=== PATIENT | male | born 1935 | race Caucasian/White ===

== ENCOUNTER 2017-11-14 01:17 | Inpatient (IN) | payer BC, MEDICARE ==
[~2017-11-14] VITALS: Ht 172.7 cm; Wt 121.2 kg
--- NOTE | 2017-11-14 02:32 | NUR ---
PT BIB FAMILY FROM HOME, PT C/O FLU LIKE SYMPTOMS X 4 DAYS. PT AOX3 RR EVEN AND UNLABORED. NO SOB NOTED. NAD NOTED. NO NVD AT THIS TIME. PT GOWNED AND PLACED ON MONITOR WAITING FOR MD BHANDARI. FAMILY AT BEDSIDE
--- NOTE | 2017-11-14 02:37 | NUR ---
DR. NOLASCO AT BEDSIDE FOR EVAL.
--- NOTE | 2017-11-14 02:47 | NUR ---
RADIOLOGY AT BEDSIDE FOR CXR
[2017-11-14] MEDS ORDERED: FUROSEMIDE 40 MG/4 ML VIAL ONE (02:59)
[2017-11-14] MEDS ORDERED: ASPIRIN 325 MG TABLET ONE (03:00)
[2017-11-14] MEDS ORDERED: ASPIRIN 325 MG TABLET PO ONE (03:00)
[2017-11-14] MEDS ORDERED: FUROSEMIDE 40 MG/4 ML VIAL IV ONE (03:00)
[2017-11-14] MEDS ORDERED: FUROSEMIDE 20 MG/2 ML VIAL ONE (03:00)
[2017-11-14 03:04] LABS: HEMATOCRIT 43 % (39-51); HEMOGLOBIN 14.3 g/dL (13.5-17.5); LYMPHOCYTES # (AUTO) 0.8 /CMM (0.8-4.8); LYMPHOCYTES % (AUTO) 3.8 % (20.0-44.0); MEAN CORPUSCULAR HEMOGLOBIN 32 PG (26.0-33.0); MEAN CORPUSCULAR HGB CONC 34 g/dl (31.0-36.0); MEAN CORPUSCULAR VOLUME 95 fL (80-96); MONOCYTES # (AUTO) 1.3 /CMM (0.1-1.30); MONOCYTES % (AUTO) 6.2 % (2.0-12.0); NEUTROPHILS # (AUTO) 19.1 /CMM (1.8-8.9); PLATELET COUNT (AUTO) 210 /CMM (150-450); RDW COEFFICIENT OF VARIATION 13.4 (11.5-15.0); RED BLOOD CELL COUNT(AUTO) 4.47 MIL/uL (4.5-6.0); WHITE BLOOD COUNT (AUTO) 21.2 K/uL (4.3-11.0)
[2017-11-14 03:18] LABS: INR 1.1 (0.87-1.13)
[2017-11-14 03:22] LABS: TROPONIN I < 0.017 ng/mL (0.00-0.056)
[2017-11-14 03:28] LABS: CALCIUM, SERUM 9.2 mg/dL (8.5-10.1); CARBON DIOXIDE 30 mmol/L (21-32); CHLORIDE 101 mmol/L (98-107); CREATININE 1.7 mg/dL (0.6-1.3); GLUCOSE 214 mg/dL (74-106); POTASSIUM 4.2 mmol/L (3.5-5.1); SODIUM SERUM 139 mmol/L (136-145); UREA NITROGEN, BLOOD 24 mg/dL (7-18)
[2017-11-14 03:39] LABS: BAND % (MANUAL) 4 % (0.0-5.0); LYMPHOCYTES % (MANUAL) 2 % (16-48); MONOCYTES % (MANUAL) 7 % (0-11.0); NEUTROPHILS % (MANUAL) 87 (42-76)
[2017-11-14 03:40] LABS: ALANINE AMINOTRANSFERASE 19 U/L (12-78); ALBUMIN 2.8 g/dL (3.4-5.0); ALKALINE PHOSPHATASE 105 U/L (46-116); ASPARTATE AMINOTRANSFERASE 15 U/L (15-37); B-TYPE NATRIURETIC PEPTIDE 1130 PG/ML (0-125); BILIRUBIN,DIRECT 0.2 mg/dL (0.0-0.2); BILIRUBIN,TOTAL 0.7 mg/dL (0.2-1.0); TOTAL PROTEIN, SERUM 8.2 g/dL (6.4-8.2)
[2017-11-14] MEDS ORDERED: CEFTRIAXONE 1GM BAG (ER ONLY) 1 GM/50 ML PIGGYBACK IV ONE (04:00)
[2017-11-14] MEDS ORDERED: AZITHROMYCIN 500 MG in IV D5W 250 ML IV ONE (04:00)
--- NOTE | 2017-11-14 04:05 | NUR ---
BLOOD CX COLLECTED. AND INFLUENZA SWAB COLLCTED. CALLED LAB FOR PCK UP.
[2017-11-14] MEDS ORDERED: CEFTRIAXONE 1GM BAG (ER ONLY) 50 ML IV ONE (04:17)
[2017-11-14] MEDS ORDERED: AZITHROMYCIN 500 MG VIAL ONE (04:28)
--- NOTE | 2017-11-14 04:30 | NUR ---
DR. NOLASCO AT [facility] SPEAKING TO PT FAMILY REGARDING RESULTS
--- NOTE | 2017-11-14 04:31 | NUR ---
EPIC PANEL PAGED FOR ADMISSION
[2017-11-14] MEDS ORDERED: POTA10CA43 PO (04:46)
[2017-11-14] MEDS ORDERED: BRIM5DRO2 RIGHTEYE (04:46)
[2017-11-14] MEDS ORDERED: METF500T7 PO (04:46)
[2017-11-14] MEDS ORDERED: ATOR10TA PO (04:46)
[2017-11-14] MEDS ORDERED: LOSA100T15 PO (04:46)
[2017-11-14] MEDS ORDERED: CLOP75TA15 PO (04:46)
--- NOTE | 2017-11-14 04:53 | NUR ---
PT ASSIGNED TO 312-2
--- NOTE | 2017-11-14 04:57 | NUR ---
REPORT GIVEN TO TONIA WESTFALL FOR [facility] / TELE BED 312-2
[2017-11-14] MEDS ORDERED: LEVALBUTEROL HCL NEB 1.25 MG/0.5 ML VIAL.NEB NEB SCH (05:00)
[2017-11-14] MEDS ORDERED: Z GUARD REMEDY 2 OZ OINT TP PRN (05:00)
[2017-11-14] MEDS: CEFTRIAXONE 1 G in IV D5W 50 ML IV SCH (05:00)
[2017-11-14] MEDS: AZITHROMYCIN 250 MG TABLET PO SCH (05:00)
[2017-11-14] MEDS ORDERED: hydrALAZINE HCL 25 MG TABLET PO PRN (05:00)
[2017-11-14] MEDS ORDERED: HYDROCODONE/APAP 5/325MG 1 EACH TABLET PO PRN (05:00)
[2017-11-14] MEDS ORDERED: DEXTROSE 50%-WATER 50 ML DISP.SYRIN IV PRN (05:00)
[2017-11-14] MEDS ORDERED: ONDANSETRON HCL/PF 4 MG/2 ML VIAL IVP PRN (05:00)
[2017-11-14] MEDS ORDERED: MAG HYDROX/AL HYDROX/SIMETH 30 ML UDC PO PRN (05:00)
[2017-11-14] MEDS ORDERED: ACETAMINOPHEN 325 MG TABLET PO PRN (05:00)
[2017-11-14] MEDS ORDERED: IV NS 0.9% 500 ML IV ONE (05:00)
[2017-11-14] MEDS ORDERED: ALPRAZOLAM 0.25 MG TABLET PO PRN (05:00)
[2017-11-14] MEDS ORDERED: ZOLPIDEM TARTRATE 5 MG TABLET PO PRN (05:00)
[2017-11-14] MEDS ORDERED: MAGNESIUM HYDROXIDE 30 ML UDC PO PRN (05:00)
[2017-11-14 05:15] VITALS: BP 127/65
--- NOTE | 2017-11-14 05:15 | NUR ---
TELERN RECEIVED FROM ER [facility] BY AND SON AN 82 Y/O MALE CC OF FLU LIKE SYMPTOMS FOR 4 DAYS. EXERTIONAL SOB, ADMISSION INFO OBTAINED FROM AND SON, PARTIALLY FROM PATIENT. STATED FEELS TOO TIRED AND WANTED TO SLEEP. PLUS 3 EDEMA ON LOWER IBRAHIMA EXTREMITIES SEEN. 02 AT 3 L NC. V/S STABLE. NPO TILL SEEN BY EXTRACTOR OPERATOR SOLVENT PROCESS. ORIENTED TO ROOM FACILITIES, APPEARS TO UNDERSTAND. CALL LIGHT WITHIN REACH .
--- NOTE | 2017-11-14 05:16 | NUR ---
PT TRANSFERRED PER [facility]OL TO THE [facility] BED 312-2
[2017-11-14 05:30] VITALS: BP 127/65
[2017-11-14] MEDS ORDERED: ENOXAPARIN SODIUM 30 MG/0.3 ML DISP.SYRIN ONE (06:00)
[2017-11-14] MEDS: ENOXAPARIN SODIUM 30 MG/0.3 ML DISP.SYRIN SQ SCH (06:41)
--- NOTE | 2017-11-14 06:50 | NUR ---
TELERN ST ON THE MONITOR WITH OCC PVC. RESTING QUIETLY. LOVENOX ADMINISTERED. BS 258. WILL ENDORSE TO INCOMING RN
[2017-11-14] MEDS: BLOOD SUGAR DIAGNOSTIC 1 EACH STRIP IN SCH ×4 (07:30→21:27)
--- NOTE | 2017-11-14 07:35 | NUR ---
MARBLE INSTALLATION HELPER/OPENING NOTES RECEIVED PT. IN BED A&OX3. TELE MONITOR READING SINUS TACHYCARDIA WITH PVC'S AT 108 BPM. BREATHING ON OXYGEN AT 2L/MIN VIA NASAL CANNULA. BREATHING SHALLOW. NO S/S OF ACUTE DISTRESS. IV ON LEFT FOREARM IS INTACT AND PATENT. URINAL IS AT BEDSIDE. BED IS IN LOWEST, AND LOCKED POSITION, 2 SIDE RAILS UP, AND INSTRUCTED PT. TO USE CALL LIGHT FOR ASSISTANCE. ALL NEEDS MET. WILL CONTINUE TO ASSESS AND MONITOR.
[2017-11-14 08:00] VITALS: BP 123/57
[2017-11-14 09:24] LABS: MAGNESIUM 1.8 mg/dL (1.8-2.4); PHOSPHORUS 2.6 mg/dL (2.5-4.9)
[2017-11-14] MEDS: POTASSIUM CHLORIDE 20 MEQ TAB.PRT.SR PO SCH ×2 (09:52→11:06)
[2017-11-14] MEDS: FUROSEMIDE 40 MG/4 ML VIAL IV SCH ×3 (09:55→17:01)
[2017-11-14] MEDS: METOPROLOL TARTRATE 25 MG TABLET PO SCH ×2 (09:56→21:26)
[2017-11-14] MEDS: INSULIN REGULAR, HUMAN 100 UNIT/ML 3 ML VIAL SQ PRN ×3 (11:55→21:28)
[2017-11-14 12:22] LABS: THYROID STIMULATING HORMONE 0.828 uIU/mL (0.358-3.74)
[2017-11-14] MEDS: ASPIRIN 81 MG TAB.CHEW PO SCH (13:08)
[2017-11-14 16:14] VITALS: BP 112/56
--- NOTE | 2017-11-14 19:10 | NUR ---
TELE/RN NOTES RECEIVED PT. LYING IN BED RESTING. PT. IS EASILY AROUSABLE TO NAME. AWAKE, ALERT AND ORIENTED X 3. BREATHING EVEN AND UNLABORED ON 2LPM O2 VIA NC. NO SOB, RESPIRATORY DISTRESS OR COMPLAINTS OF PAIN NOTED AT THIS TIME. PT. WITH EXTERNAL PERITONEAL DIALYSIS REGISTERED NURSE PRESENT AND INTACT. CURRENT RHYTHM = SINUS RHYTHM HR 90. BED LOCKED AND IN LOWEST POSITION, SIDE RAILS UP X2, BED ALARM ON, CALL LIGHT WITHIN REACH, WILL CONTINUE TO MONITOR.
--- NOTE | 2017-11-14 19:21 | NUR ---
CHEMICAL INSTRUMENTATION OFFICER/CLOSING NOTES PT. IN BED A&OX3. ON TELE MONITOR READING SINUS RHYTHM 85 BPM WITH PVC'S. BREATHING ON OXYGEN AT 2L/MIN VIA NASAL CANNULA. BREATHING SHALLOW. NO S/S OF ACUTE DISTRESS. IV ON LEFT FOREARM IS INTACT AND PATENT. URINAL IS AT BEDSIDE. BED IS IN LOWEST, AND LOCKED POSITION, 2 SIDE RAILS UP, AND INSTRUCTED PT. TO USE CALL LIGHT FOR ASSISTANCE. ALL NEEDS MET. WILL ENDORSE REPORT TO NURSE.
[2017-11-14 20:00] VITALS: BP 115/49
[2017-11-14] MEDS: ALBUTEROL FS 2.5 MG/3 ML VIAL.NEB NEB SCH (21:10)
[2017-11-14] MEDS: ATORVASTATIN 10 MG TABLET PO SCH (21:26)
--- NOTE | 2017-11-14 22:40 | NUR ---
TELE/RN NOTES NOTIFIED EPIC WOOL SORTER MD GONZALEZ PT. CRITICAL LAB RESULT: AEROBIC BLOOD CULTURE IS POSITIVE FOR GRAM NEGATIVE RODS. PT. IS RECEIVING ROCEPHIN AND ZITHROMAX ANTIBIOTICS. PER MD GONZALEZ OK, NO NEW ORDERS AT THIS TIME. WILL CONTINUE TO MONITOR.
[2017-11-15] VITALS: BP 113/55
[2017-11-15] MEDS: ALBUTEROL FS 2.5 MG/3 ML VIAL.NEB NEB SCH ×5 (00:58→20:01)
[2017-11-15 04:00] VITALS: BP 104/47
[2017-11-15] MEDS: CEFTRIAXONE 1 G in IV D5W 50 ML IV SCH (05:33)
[2017-11-15] MEDS: ENOXAPARIN SODIUM 30 MG/0.3 ML DISP.SYRIN SQ SCH (05:33)
[2017-11-15] MEDS: AZITHROMYCIN 250 MG TABLET PO SCH (05:33)
--- NOTE | 2017-11-15 06:13 | NUR ---
TELE/RN NOTES PT. IS LYING IN BED RESTING. BREATHING EVEN AND UNLABORED ON 3LPM O2 VIA NC. NO SOB, RESPIRATORY DISTRESS OR COMPLAINTS OF PAIN NOTED AT THIS TIME AND THROUGHOUT SHIFT. PT. WITH EXTERNAL SUPPORT SERVICES SPECIALIST PRESENT AND INTACT. CURRENT RHYTHM = SINUS RHYTHM HR 91. ALL PT. NEEDS MET. BED LOCKED AND IN LOWEST POSITION, SIDE RAILS UP X2, BED ALARM ON, CALL LIGHT WITHIN REACH, WILL ENDORSE TO DAYSHIFT NURSE FOR CONTINUITY OF CARE.
[2017-11-15] MEDS: BLOOD SUGAR DIAGNOSTIC 1 EACH STRIP IN SCH ×4 (06:54→22:01)
[2017-11-15] MEDS: INSULIN REGULAR, HUMAN 100 UNIT/ML 3 ML VIAL SQ PRN ×4 (06:55→22:02)
[2017-11-15 07:12] LABS: HEMATOCRIT 39 % (39-51); HEMOGLOBIN 12.9 g/dL (13.5-17.5); LYMPHOCYTES # (AUTO) 0.6 /CMM (0.8-4.8); MEAN CORPUSCULAR HEMOGLOBIN 32 PG (26.0-33.0); MEAN CORPUSCULAR HGB CONC 33 g/dl (31.0-36.0); MEAN CORPUSCULAR VOLUME 97 fL (80-96); MONOCYTES % (AUTO) 6.3 % (2.0-12.0); NEUTROPHILS # (AUTO) 14.1 /CMM (1.8-8.9); NEUTROPHILS % (AUTO) 89.7 % (43.0-81.0); PLATELET COUNT (AUTO) 214 /CMM (150-450); RDW COEFFICIENT OF VARIATION 13.9 (11.5-15.0); RED BLOOD CELL COUNT(AUTO) 4.02 MIL/uL (4.5-6.0); WHITE BLOOD COUNT (AUTO) 15.7 K/uL (4.3-11.0)
[2017-11-15 07:25] LABS: CHOLESTEROL 110 mg/dL (<200); HDL CHOLESTEROL 37 mg/dL (40-60); LDL 53 mg/dL (0-99); TRIGLYCERIDES 91 mg/dL (30-150)
[2017-11-15 07:27] LABS: TROPONIN I < 0.017 ng/mL (0.00-0.056)
[2017-11-15 07:33] LABS: ALANINE AMINOTRANSFERASE 17 U/L (12-78); ALBUMIN 2.3 g/dL (3.4-5.0); ALKALINE PHOSPHATASE 110 U/L (46-116); ASPARTATE AMINOTRANSFERASE 18 U/L (15-37); BILIRUBIN,TOTAL 0.2 mg/dL (0.2-1.0); CALCIUM, SERUM 8.5 mg/dL (8.5-10.1); CARBON DIOXIDE 34 mmol/L (21-32); CHLORIDE 103 mmol/L (98-107); CREATININE 2.1 mg/dL (0.6-1.3); GLUCOSE 206 mg/dL (74-106); MAGNESIUM 1.8 mg/dL (1.8-2.4); PHOSPHORUS 4.5 mg/dL (2.5-4.9); POTASSIUM 4.8 mmol/L (3.5-5.1); SODIUM SERUM 142 mmol/L (136-145); TOTAL PROTEIN, SERUM 7.2 g/dL (6.4-8.2); UREA NITROGEN, BLOOD 35 mg/dL (7-18)
--- NOTE | 2017-11-15 07:55 | NUR ---
STOCK HOUSE WORKER OPENING NOTE RECEIVED BEDSIDE SBAR REPORT ON THE PATIENT. PATIENT IS A/0 X3, COOPERATIVE. PATIENT IS AWAKE AND RESPONSIVE IN BED. DENIES PAIN/DISCOMFORT AT THIS TIME. EXTERNAL MONITOR READING SR 80. CHEST RISING EQUALLY BILATERALLY. PATIENT IS IN BED. BED IS LOCKED, IN LOWEST POSITION, SIDE RAILS UP X3, BED ALARM IS ON. PATIENT IS AMBULATORY WITH ASSIST. USES URINAL. URINAL AT THE BEDSIDE. CALL LIGHT WITHIN REACH. ALL BELONGINGS IN CLOSE APPROXIMATION AND ACCESSIBLE. ALL NEEDS ARE MET AT THIS TIME. EDUCATED TO CALL USING THE CALL LIGHT FOR ASSISTANCE. VERBALIZED UNDERSTANDING. WILL CONTINUE TO ASSESS/MONITOR THROUGHOUT THE SHIFT.
[2017-11-15 08:00] VITALS: BP 139/78
[2017-11-15] MEDS: ASPIRIN 81 MG TAB.CHEW PO SCH (10:01)
[2017-11-15] MEDS: METOPROLOL TARTRATE 25 MG TABLET PO SCH ×2 (10:02→21:00)
[2017-11-15] MEDS ORDERED: ALBUTEROL FS 2.5 MG/0.5 ML VIAL.NEB NEB PRN (12:00)
[2017-11-15 15:55] VITALS: BP 107/55
--- NOTE | 2017-11-15 19:10 | NUR ---
MS/RN NOTES RECEIVED PT. LYING IN BED, AWAKE, ALERT AND ORIENTED X 3. BREATHING EVEN AND UNLABORED ON 2LPM O2 VIA NC. NO SOB, RESPIRATORY DISTRESS OR COMPLAINTS OF PAIN NOTED AT THIS TIME. PT. WITH LEFT FOREARM 18 GAUGE IV SALINE LOCK PRESENT, PATENT AND INTACT. BED LOCKED AND IN LOWEST POSITION, SIDE RAILS UP X2, BED ALARM ON, CALL LIGHT WITHIN REACH, WILL CONTINUE TO MONITOR.
--- NOTE | 2017-11-15 19:25 | NUR ---
MS RN OPENING NOTE GAVE BEDSIDE SBAR REPORT ON THE PATIENT. PATIENT IS A/0 X3, COOPERATIVE. PATIENT IS AWAKE AND RESPONSIVE IN BED. DENIES PAIN/DISCOMFORT AT THIS TIME. CHEST RISING EQUALLY BILATERALLY. PATIENT IS IN BED. BED IS LOCKED, IN LOWEST POSITION, SIDE RAILS UP X3, BED ALARM IS ON. PATIENT IS AMBULATORY WITH ASSIST. USES URINAL. URINAL AT THE BEDSIDE. SKIN IS INTACT. CALL LIGHT WITHIN REACH. ALL BELONGINGS IN CLOSE APPROXIMATION AND ACCESSIBLE. ALL NEEDS ARE MET AT THIS TIME. EDUCATED TO CALL USING THE CALL LIGHT FOR ASSISTANCE. VERBALIZED UNDERSTANDING. ENDORSED TO THE EYE SPECIALIST FOR [facility].
[2017-11-15 20:18] VITALS: BP 111/49
[2017-11-15] MEDS: ATORVASTATIN 10 MG TABLET PO SCH (22:00)
[2017-11-16] MEDS: ALBUTEROL FS 2.5 MG/3 ML VIAL.NEB NEB SCH ×4 (04:05→12:07)
[2017-11-16] MEDS: CEFTRIAXONE 1 G in IV D5W 50 ML IV SCH (05:30)
[2017-11-16] MEDS: AZITHROMYCIN 250 MG TABLET PO SCH (05:30)
[2017-11-16] MEDS: ENOXAPARIN SODIUM 30 MG/0.3 ML DISP.SYRIN SQ SCH (05:33)
--- NOTE | 2017-11-16 06:09 | NUR ---
MS/RN NOTES PT. IS LYING IN BED, AWAKE, ALERT AND ORIENTED X 3. BREATHING EVEN AND UNLABORED ON 2LPM O2 VIA NC. NO SOB, RESPIRATORY DISTRESS OR COMPLAINTS OF PAIN NOTED AT THIS TIME AND THROUGHOUT SHIFT. PT. WITH LEFT FOREARM 18 GAUGE IV SALINE LOCK PRESENT, PATENT AND INTACT. ALL PT. NEEDS MET. BED LOCKED AND IN LOWEST POSITION, SIDE RAILS UP X2, BED ALARM ON, CALL LIGHT WITHIN REACH, WILL ENDORSE TO DAYSHIFT NURSE FOR CONTINUITY OF CARE.
[2017-11-16 06:33] LABS: BASOPHILS % (AUTO) 0.1 % (0.0-2.0); EOSINOPHILS # (AUTO) 0.1 /CMM (0.0-0.7); EOSINOPHILS % (AUTO) 0.6 % (0.0-6.0); HEMATOCRIT 36 % (39-51); HEMOGLOBIN 11.9 g/dL (13.5-17.5); LYMPHOCYTES # (AUTO) 0.9 /CMM (0.8-4.8); LYMPHOCYTES % (AUTO) 8.4 % (20.0-44.0); MEAN CORPUSCULAR HEMOGLOBIN 32 PG (26.0-33.0); MEAN CORPUSCULAR HGB CONC 33 g/dl (31.0-36.0); MEAN CORPUSCULAR VOLUME 96 fL (80-96); MONOCYTES # (AUTO) 1.2 /CMM (0.1-1.30); MONOCYTES % (AUTO) 11.6 % (2.0-12.0); NEUTROPHILS # (AUTO) 8.4 /CMM (1.8-8.9); NEUTROPHILS % (AUTO) 79.3 % (43.0-81.0); PLATELET COUNT (AUTO) 216 /CMM (150-450); RDW COEFFICIENT OF VARIATION 13.7 (11.5-15.0); RED BLOOD CELL COUNT(AUTO) 3.72 MIL/uL (4.5-6.0); WHITE BLOOD COUNT (AUTO) 10.6 K/uL (4.3-11.0)
[2017-11-16] MEDS: BLOOD SUGAR DIAGNOSTIC 1 EACH STRIP IN SCH (06:34)
[2017-11-16] MEDS: INSULIN REGULAR, HUMAN 100 UNIT/ML 3 ML VIAL SQ PRN (06:35)
[2017-11-16 06:38] LABS: CALCIUM, SERUM 8.8 mg/dL (8.5-10.1); CARBON DIOXIDE 34 mmol/L (21-32); CHLORIDE 104 mmol/L (98-107); CREATININE 1.6 mg/dL (0.6-1.3); GLUCOSE 201 mg/dL (74-106); POTASSIUM 4.1 mmol/L (3.5-5.1); SODIUM SERUM 142 mmol/L (136-145); UREA NITROGEN, BLOOD 37 mg/dL (7-18)
[2017-11-16 08:00] VITALS: BP 109/50
--- NOTE | 2017-11-16 08:50 | NUR ---
MS RN RECEIVED ON BED, AWAKE,ALERT,ORIENTED X3,NOT IN ANY FORM OF DISTRESS, RESPIRATIONS EVEN AND UNLABORED,NO SOB NOTED.
[2017-11-16 09:00] VITALS: BP 109/50
[2017-11-16] MEDS: METOPROLOL TARTRATE 25 MG TABLET PO SCH (09:00)
--- NOTE | 2017-11-16 09:10 | NUR ---
MS RANDALL BREAKFAST SERVED,DUE MEDS GIVEN, TOLERATED WELL.
[2017-11-16] MEDS: ASPIRIN 81 MG TAB.CHEW PO SCH (09:50)
[2017-11-16] MEDS ORDERED: METO25TA20 PO (10:54)
--- NOTE | 2017-11-16 11:00 | NUR ---
MS RN WAS SEEN BY ALYSSA MCCLAIN W/ ORDER TO BE DISCHARGE TODAY.
[2017-11-16] MEDS ORDERED: AZIT250T13 PO (11:08)
[2017-11-16] MEDS ORDERED: AMOX875T2 PO (11:08)
--- NOTE | 2017-11-16 13:00 | NUR ---
MS RN PATIENT WENT HOME ACCOMPANIED BY FAMILY,DISCHARGE INSTRUCTIONS GIVEN , NO DISTRESS NOTED.
[2017-11-18 05:08] LABS: *SPE A/G RATIO 0.7 (0.7-1.7); *SPE ALBUMIN 2.8 g/dL (2.9-4.4); *SPE ALPHA-1-GLOBULIN 0.6 g/dL (0.0-0.4); *SPE ALPHA-2-GLOBULIN 1.3 g/dL (0.4-1.0); *SPE BETA GLOBULIN 1.1 g/dL (0.7-1.3); *SPE GLOBULIN, TOTAL 4.1 g/dL (2.2-3.9); *SPE M-SPIKE Not Observed g/dL (Not Observed); *SPEGAMMA GLOBULIN 1.1 g/dL (0.4-1.8)
== END 2017-11-16 13:36 | disposition home or self-care (01) | DRG 871 ==
LOC: ER 01:21 → TELE 05:12 → MED 11-15 09:52
PROVIDERS: ADMIT Internal Medicine; ATTEND Internal Medicine
DX: A41.9 Sepsis, unspecified organism (principal); J18.9 Pneumonia, unspecified organism; I50.33 Acute on chronic diastolic (congestive) heart failure; E44.0 Moderate protein-calorie malnutrition; N17.9 Acute kidney failure, unspecified; I11.0 Hypertensive heart disease with heart failure; E11.22 Type 2 diabetes mellitus with diabetic chronic kidney disease; I13.0 Hypertensive heart and chronic kidney disease with heart failure and stage 1 through stage 4 chronic kidney disease, or unspecified chronic kidney disease; Z68.41 Body mass index [BMI] 40.0-44.9, adult; N18.9 Chronic kidney disease, unspecified; Z88.2 Allergy status to sulfonamides; Z79.899 Other long term (current) drug therapy; Z79.84 Long term (current) use of oral hypoglycemic drugs; J40 Bronchitis, not specified as acute or chronic; E66.01 Morbid (severe) obesity due to excess calories; G47.33 Obstructive sleep apnea (adult) (pediatric)
CPT/HCPCS: 36415; 71045-TC; 80048-TC; 80053-TC; 80061-TC; 80076-TC; 82306; 82746; 82962-TC; 83605-TC; 83735-TC; 83880; 84100-TC; 84155; 84165; 84439-TC; 84443-TC; 84484-TC; 85025-TC; 85730-TC; 87040-TC; 87081-TC; 87186-TC; 87400; 93307-TC; A4606; J0456; J0696; J1650; J1815; J1940; J7050; J7060; Z7610

== ENCOUNTER 2017-12-02 12:56 | Outpatient (CLI) | payer MEDICARE, BC ==
[2017-12-02 12:56] VITALS: BP 125/64
[~2017-12-02 12:56] MED LIST: AMOX875T2 PO; ATOR10TA PO; AZIT250T13 PO; BRIM5DRO2 RIGHTEYE; CLOP75TA15 PO; LOSA100T15 PO; METF500T7 PO; METO25TA20 PO; POTA10CA43 PO
== END 2017-12-02 23:59 | disposition home or self-care (01) ==
LOC: MSC 12:56
PROVIDERS: ATTEND Internal Medicine
DX: I11.0 Hypertensive heart disease with heart failure (principal); I50.9 Heart failure, unspecified; E66.9 Obesity, unspecified; E11.9 Type 2 diabetes mellitus without complications; E44.0 Moderate protein-calorie malnutrition; E88.09 Other disorders of plasma-protein metabolism, not elsewhere classified

== ENCOUNTER 2017-12-09 12:56 | Outpatient (CLI) | payer BC, MEDICARE ==
[2017-12-09 13:00] VITALS: BP 140/74
== END 2017-12-09 23:59 | disposition home or self-care (01) ==
LOC: MSC 12:56
PROVIDERS: ATTEND Internal Medicine
DX: L60.0 Ingrowing nail (principal); I10 Essential (primary) hypertension; E11.9 Type 2 diabetes mellitus without complications; E66.9 Obesity, unspecified; E44.0 Moderate protein-calorie malnutrition; E88.09 Other disorders of plasma-protein metabolism, not elsewhere classified